=== PATIENT | female | born 1985 | race Caucasian/White ===

== ENCOUNTER 2020-12-24 12:05 | Emergency (ER) | payer BC, SELFPAY ==
[2020-12-24 12:11] VITALS: BP 116/87; PULSE 101; RESP 16; TEMP 36.6; O2SAT 98
--- NOTE | 2020-12-24 12:19 | ED.DENTAL ---
HPI - Dental/Oral General Chief complaint: Dental/Oral Stated complaint: tooth pain Time Seen by Provider: 12/24/20 12:15 Source: patient and RN notes reviewed Mode of arrival: ambulatory Limitations: no limitations History of Present Illness HPI Narrative: 35-year-old female presents to the [facility] stating that over the weekend she was eating and her left upper posterior molar fell out. Patient has poor dentition. Does not believe the tooth was infected, glucose or decayed. Call the dental provider this morning and has an appointment for December 31. Patient reports that she is currently on Augmentin for sinus infection, still has a week left Teeth map: 1. Tooth recently removed. Possible small amount of tooth left within the socket. 2. Tooth 14 and 15 both have decay. Related Data Home Medications Medication Instructions Recorded Confirmed estradiol 2 mg PO DAILY 10/17/19 12/24/20 insulin glulisine U-100 [Apidra 1 sliding scale dose SUBCUT 10/17/19 12/24/20 U-100 Insulin] USEASDIRECTD levothyroxine 125 mcg PO DAILY 10/17/19 12/24/20 amoxicillin-pot clavulanate 1 tablet PO BID 12/24/20 12/24/20 escitalopram oxalate 10 mg PO DAILY 12/24/20 12/24/20 insulin glargine [Lantus Solostar 15 unit SUBCUT QPM 12/24/20 12/24/20 U-100 Insulin] Allergies Allergy/AdvReac Type Severity Reaction Status Date / Time No Known Allergies Allergy Verified 12/24/20 12:14 Review of Systems Review of Systems: Narrative: CONSTITUTIONAL: Denies fever, chills, or sweats. EYES: Denies visual changes, redness, or discharge. ENT: Denies rhinorrhea, congestion, sore throat, or otalgia. Left upper dental pain CARDIOVASCULAR: Denies chest pain, palpitations, or edema. RESPIRATORY: Denies cough or dyspnea. GASTROINTESTINAL: Denies abdominal pain, nausea, vomiting, or diarrhea. MUSCULOSKELETAL: Denies back pain, joint pain, or myalgia. NEUROLOGIC: Denies headache, numbness, or weakness. PSYCHIATRIC: Denies anxiety or depression. All other systems reviewed are negative, except as documented in HPI. [facility] Past Medical History Medical History Diabetes Hypothyroidism Surgical History Surgical History H/O bilateral oophorectomy H/O: hysterectomy Previous section Social History Social History Tobacco type: e-cigarettes/vaping Comments At the time of my signature, I reviewed and agree with the nursing past medical, surgical, social, and family history. There is no relevant family history pertinent to the patient complaint. Exam Narrative: Exam Narrative: GENERAL: This is a well-nourished, well-developed patient, in no apparent distress. HEAD: normocephalic, atraumatic. EYES: PERRL. Sclera clear/white. Vision is grossly intact. EARS: External ears normal, auditory canals clear and without drainage, TMs normal without perforation. Hearing grossly intact. NOSE: External nose normal with no obvious nasal discharge, nares without redness, no rhinorrhea. THROAT: Mucous membranes moist, posterior pharynx clear. Dental decay noted in upper molars. Left upper molar no longer intact, patient reports it had fallen out over the weekend. No swelling to the gum. NECK: Neck supple, non-tender without lymphadenopathy, masses or thyromegaly. CARDIOVASCULAR: Regular rate and rhythm without murmurs, gallops, or rubs. RESPIRATORY: Clear to auscultation. Breath sounds equal bilaterally. No wheezes, rales, or rhonchi. GASTROINTESTINAL: Abdomen soft, non-tender. SKIN: warm, intact with no suspicious lesions or rash, good texture and turgor. NEURO: awake, alert, and oriented to person, place and time. There were no obvious focal neurologic abnormalities. EXTREMITIES: No joint tenderness. BACK: Nontender without deformity. Course Vital Signs Vital signs: Vital Signs Temperature 97.8 F 03
== END 2020-12-24 12:27 | disposition home or self-care (01) ==
PROVIDERS: Emergency Provider Nurse Practitioner
DX: K08.89 Other specified disorders of teeth and supporting structures (principal); F17.200 Nicotine dependence, unspecified, uncomplicated; E11.9 Type 2 diabetes mellitus without complications; E03.9 Hypothyroidism, unspecified
CPT/HCPCS: 99213; G0463

== ENCOUNTER 2025-06-11 19:29 | Emergency (ER) | payer SELFPAY ==
--- NOTE | ~2025-06-11 | XR_ITS ---
EXAMINATION: XR ankle LT min 3V DATE: 06/11/2025 20:04 INDICATION: Left ankle injury post fall TECHNIQUE: Anteroposterior, oblique and lateral views of the left ankle were obtained. COMPARISON: None. FINDINGS: There is an spiral fracture through the distal metaphyseal region of the left fibula which extends to the level of the tibiotalar joint line and with minimal posterior angulation. There is 6 mm distraction of a transverse fracture across the base of the medial malleolus. There is 3 mm posterior superior displacement and mild posterior angulation of a fracture extending across the posterior malleolus which involves a small portion of the posterior articular surface of the tibial plafond. No fracture of the talar dome. Couple millimeter lateral subluxation of the talar dome with respect to the tibial plafond and with slight widening of the anterior tibiotalar joint space. No fracture noted visualized left foot. 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 IMPRESSION: 1. Mild displacement of a trimalleolar fracture of the left ankle. Reviewed, dictated and finalized at location A.
[2025-06-11 19:31] VITALS: BP 141/87; PULSE 99; RESP 17; TEMP 36.4; O2SAT 100
--- OUTSIDE RECORDS SUMMARY | 2025-06-11 19:32 | XMS_ITS | Clinical Summary ---
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 No more refills. Needs to make a f/up appointment. Can be seen in [place] office 30 mL 9 Active atorvastatin 20 MG tablet Take 1 tablet by mouth. 7 Active Blood Glucose Monitoring Suppl (ONE TOUCH ULTRA 2) w/Device Kit 7 Active escitalopram 10 MG tablet Take 10 mg by mouth daily. 0 8 Active PREMARIN 1.25 MG tablet Take 1.25 mg by mouth daily. 6 9 Active fluconazole 150 MG tablet TK 1 T PO FOR 1 DOSE THEN REPEAT IN 3 DAYS 0 8 Active gabapentin 300 MG capsule TK 1 C PO QPM 2 9 Active Glucose Blood (ONE TOUCH ULTRA TEST STRIPS) test strip 5 (five) times daily. 7 Active ONETOUCH DELICA LANCETS FINE Misc by Other route 5 (five) times daily. 7 Active ESTARYLLA 0.25-35 MG-MCG tablet Take 1 tablet by mouth daily. 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 No more refills without an appointment. Last seen Jul 2017. 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 Gender Identity Not on file Sexual Orientation Not on file Last Filed Vital Signs Vital Sign Reading Time Taken Comments Blood Pressure 108/64 07/27/2017 12:00 PM CDT Pulse 75 07/27/2017 12:00 PM CDT Temperature - - Respiratory Rate - - Oxygen Saturation - - Inhaled Oxygen Concentration - - Weight 72.1 kg (159 lb) 07/27/2017 12:00 PM CDT Height 170.2 cm (5' 7) 07/27/2017 12:00 PM CDT Body Mass Index 24.9 07/27/2017 12:00 PM CDT Plan of Treatment Health Maintenance Due Date Last Done Comments Cervical Cancer Screening Pa p Smear (Age 30 to 64) Every 3 Years 1985 Annual Physical 1988 Hepatitis C 2003 DTaP, Tdap and Td Vaccines ( 1 - Tdap) 2004 Hepatitis B Vaccines (1 of 3 - 19+ 3-dose series) 2004 HPV Vaccines (1 - 3-dose SCD M series) 2012 Cervical Cancer Screening Pa p with HPV Testing (Age 30 to 64) Every 5 Years 2015 Cervical Cancer Screening with HPV 2015 COVID-19 Vaccine (2023-2 5 season) 2024 Mammogram Screening 2025 Meningococcal B Vaccine Aged Out No l onger eligible based on patient's age to complete this topic Meningococcal Vaccine Aged Out No robby mayuri eligible based on patient's age to complete this topic Pneumococcal Vaccine: Pediat rics (0 to 5 Years) and At-Risk Patients (6 to 49 Years) Aged Out No longer eligible b ased on patient's age to complete this topic RSV Immunizations Under 20 Months Aged Out No longer eligible based on patient's age to complete this topic
--- OUTSIDE RECORDS SUMMARY | 2025-06-11 19:32 | XMS_ITS | Clinical Summary ---
Author Organization [facility] Address [address] [place] [address] Phone Care Team Providers Care Bottle Cleaner Name Role Phone Claire Carrillo MD Unavailable [phone] Marcia Magana PAC Primary Care Pro vider Allergies Active Allergy Reactions Criticality Noted Date Comments Wound Dressing Adhesive Hives Medium 05/25/2024 Rash, blisters with wound glue Medications estradiol (ESTRACE) 2 MG Tablet TK 1 T PO D 06/20/2020 Active Insulin Pen Needle (Easy Touch Pen [place]averly) 32G X 5 MM Misc USE FOUR TIMES DAILY 400 Each 3 08/21/2022 Active Continuous Blood Gluc Soil Field Technician (Dexcom G7 Soil Field Technician) Device Check blood sugar before each meal and at bedtime 1 Each 01/28/2024 Active Insulin Pen Needle (BD Pen Needle Tiffany U/F) 32G X 4 MM Misc 1 Pen Needle by Does not apply route 4 times daily. Inject insulin 4x daily. 400 Pen Needle 3 01/28/2024 Active Continuous Glucose Sensor (Dexcom G7 Sensor) Misc CHANGE SENSOR EVERY 10 DAYS 9 Each 3 11/17/2024 Active levothyroxine (SYNTHROID) 112 MCG Tablet Take 1 Tablet by mouth daily. 90 Tablet 1 11/20/2024 Active atorvastatin (LIPITOR) 20 MG Tablet TAKE 1 TABLET BY MOUTH DAILY 90 Tablet 1 02/15/2025 Active insulin lispro (HumaLOG) 100 UNIT/ML Solution PER INSULIN PUMP SETTING, UP TO 70 UNITS UNDER THE SKIN DAILY 60 mL 1 03/27/2025 Active Glucose Blood (OneTouch Verio) StripIndications :Type 1 diabetes mellitus with retinopathy, macular edema presence unspecified, unspecified laterality, unspecified retinopathy severity (HCC) 4 times a day 400 Strip 3 04/11/2025 Active Blood Glucose Monitoring Suppl (OneTouch Verio) w/Device KitIndications:T ype 1 diabetes mellitus with retinopathy, macular edema presence unspecified, unspecified laterality, unspecified retinopathy severity (HCC) Check blood glucose before each meal and at bedtime 1 Kit 04/11/2025 Active OneTouch Delica Lancets 33G MiscIndications: Type 1 diabetes mellitus with retinopathy, macular edema presence unspecified, unspecified laterality, unspecified retinopathy severity (HCC) 4 times a day 400 Lancet . 3 04/11/2025 Active Active Problems Problem Noted Date Diagnosed Date Hypothyroidism 12/02/2022 Kidney disease 04/20/2020 Type 1 diabetes mellitus with other specified co mplication 04/20/2020 Generalized anxiety disorder 03/29/2020 Major depressive disorder, single episode, mild 03/29/2020 Posttraumatic stress disorder 03/29/2020 H/O abnormal Pap smear 02/13/2017 Overview (02/13/2017): 11-07-2016; LSIL H/O: hysterectomy 01/29/2017 Endometriosis 01/29/2017 Coccygodynia 02/20/2016 Sacroiliac dysfunction 02/20/2016 Type 1 diabetes mellitus with retinopathy 2015 Overview (04/20/2020): Followed by ENDO Insulin pump HA1C 8 (Oct 2016) Pt is seeing Dr Nunes Lumbar facet arthropathy, mild 12/21/2015 Tobacco dependence 12/21/2015 Encounters Date Type Department Care Team Description 04/11/2025 Refill [facility] - Endocrinology - [place] [address] [place] [address] Rigoberto Nunes MD Medication Refill 03/27/2025 Refill [facility] - Endocrinology - [place] [address] [place] [address] Rigoberto Nunes MD Medication Refill 03/23/2025 Results Follow-Up [facility] [address] [place] [phone] Rigoberto Nunes MD CMP (COMPREHENSIVE METABOLIC PANEL), THYROID STIMULATING HORMONE (TSH), THYROXINE (T4) FREE, Additional followed-up results: 2 03/22/2025 11:15 AM CDT Office Visit [facility] [address] [place] [phone] Rigoberto Nunes MD Type 1 diabetes mellitus with retinopathy, macular edema presence unspecified, unspecified laterality, unspecified retinopathy severity (HCC) (Primary Dx); Acquired hypothyroidism; Insulin dose changed (HCC); Hypoglycemia; Class 1 obesity due to excess calories with serious comorbidity and body mass index (BMI) of 31.0 to 31.9 in adult Discharge Disposition: Discharged to home or Selfcare 03/22/2025 Travel from Last 3 Months Immunizations Immunization Administration Dates Next Due Covid-19, Mrna, Lnp-s, Pf, 1 00 Mcg Or 50 Mcg Dose (MODERNA) 11/29/2020,10/25/2020 Influenza Vaccine 08/09/2018,07/04/2015 Influenza Vaccine greater than 3 yrs 07/04/2015 Influenza, Seasonal, Injectable, Undefined 07/04 Family History Medical History Relation Name Comments Alcohol Abuse Brother 1 George Diabetes Brother 1 George Asthma Brother 2 Sarbjit Cancer Father Jean Marie High Cholesterol Father Jean Marie Hypertension Father Jean Marie Lung Cancer Father Jean Marie Other-comment Father Jean Marie brain tumors High Cholesterol Mother Pat Hypertension Mother Pat Thyroid Disease Mother Pat No Known Problems Paternal Grandfather Hypertension Paternal Grandmother Relation Name Status Comments Brother 1 George Brother 2 Sarbjit Alive Father Jean Marie Maternal Grandfather Other Maternal Grandmother Other Mother Pat Alive Paternal Grandfather Paternal Grandmother Alive Social History Tobacco Use Types Packs/Day Years Used Date Smoking Tobacco: Former Cigarettes 0.5 12 0 01/11/2004 - 01/11/2016 Smokeless Tobacco: Never Tobacco Cessation:Counseling Given: No Alcohol Use Standard Drinks/Week Comments Not Currently 0 (1 standard drink = 0.6 oz pur e alcohol) social events/ gathering [facility] Utilities Answer Date Recorded In the past 12 months has th e electric, gas, oil, or water company threatened to shut off services in your home? No 05/23/2024 Social Connection and Isolation Panel Answer Date Recorded In a typical week, how many times do you talk on the phone with family, friends, or neighbors? More than three times a week 05/23/2024 How often do you get togethe r with friends or relatives? Twice a week 05/23/2024 How often do you attend chur or hindu services? Never 05/23/2024 Do you belong to any clubs o r organizations such as evangelical groups, unions, fraternal or athletic groups, or school groups? No 05/23/2024 How often do you attend meet ings of the clubs or organizations you belong to? Never 05/23/2024 Are you , , di vorced, , never , or living with a partner? 05/23/2024 AUDIT-C Answer Date Recorded Q1: How often do you have a drink containing alcohol? Never 05/23/2024 Q2: How many drinks containi ng alcohol do you have on a typical day when you are drinking? Patient does not drink Q3: How often do you have si x or more drinks on one occasion? Never 05/23/2024 Overall Financial Resource Strain (CARDIA) Answe r Date Recorded How hard is it for you to pa y for the very basics like food, housing, medical care, and heating? Not very hard 05/23/2024 PHQ-2 Answer Date Recorded Total Score - Questions 1-9 9 02/2022 [facility] - Occupational Stress Questionnaire Answer Date Recorded Do you feel stress - tense, restless, nervous, or anxious, or unable to sleep at night because your mind is troubled all the time - these days? To some extent 05/23/2024 Exercise Vital Sign Answer Date Recorde d On average, how many days pe r week do you engage in moderate to strenuous exercise (like a brisk walk)? 4 days 05/23/2024 On average, how many minutes do you engage in exercise at this level? 20 min 05/23/2024 Hunger Vital Sign Answer Date Recorded Within the past 12 months, y ou worried that your food would run out before you got the money to buy more. Never true 05/23/20 24 Within the past 12 months, t he food you bought just didn't last and you didn't have money to get more. Never true 05/23/2024 PRAPARE - Transportation Answer Date Re corded In the past 12 months, has l ack of transportation kept you from medical appointments or from getting medications? No 05/12 In the past 12 months, has l ack of transportation kept you from meetings, work, or from getting things needed for daily living? No 05/23/2024 Housing Stability Vital Sign Answer Lalo e Recorded In the last 12 months, was t here a time when you were not able to pay the mortgage or rent on time? No 05/23/2024 Number of Times Moved in the Last Year Not on fi le 05/23/2024 At any time in the past 12 m [facility], were you homeless or living in a nursing home (including now)? No 05/23/2024 Education Answer Date Recorded What is the highest level of school you have completed or the highest degree you have received? 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 Not on file Not on file Last Filed Vital Signs Vital Sign Reading Time Taken Comments Blood Pressure 114/66 03/22/2025 10:59 AM CDT Pulse 90 03/22/2025 10:59 AM CDT Temperature 36.2 C (97.1 F) 03/22/2025 10:59 AM CDT Respiratory Rate 22 03/22/2025 10:59 AM CDT Oxygen Saturation 96% 03/22/2025 10:59 AM CDT Inhaled Oxygen Concentration - - Weight 88.5 kg (195 lb) 03/22/2025 10:59 AM CDT Height 168.9 cm (5' 6.5) 03/22/2025 10:59 AM CD T Body Mass Index 31 03/22/2025 10:59 AM CDT Plan of Treatment Upcoming Encounters Date Type Department Care Team (Maureen castillo Contact Info) Description 06/22/2025 11:15 AM CDT Office Visit [facility] - [place] [address] [place] [address] Rigoberto Nunes MD [address] [address] Health Maintenance Due Date Last Done Comments Hepatitis C Virus (HCV) Screening 1985 Mammogram 1985 TdaP Immunization 1985 Hepatitis B Immunization (1 of 3 - 19+ 3-dose series) 2004 Pneumococcal Immunization Combined (1 of 2 - PCV) 2004 Human Papillomavirus (HPV) Immunization (1 - 3-dose SCDM series) 2012 SARS-COV-2 Immunization ( season) 2024 11/29/2020, 10/25/2020 Diabetes: Eye Exam 03/18/2025 03/18/2024, 0 02/19/2021, 02/18/2021, Additional history exists Discussion re Starting/Frequency of Mammograms 2025 Influenza Immunization (#1) 06/12/202507/13, 07/04/2015, 07/04/2015, Additional history exists Diabetes: Foot Exam 08/17/2025 08/17/2024 Diabetes: Hemoglobin A1c 09/21/2025 025, 11/17/2024, 08/17/2024, Additional history exists Diabetes: Nephropathy Screening 03/22/2026 03/22/2025, 03/22/2025, 05/20/2024, Additional history exists Respiratory Syncytial Virus (RSV) Immunization (Adult) (1 - 1-dose 75+ series) 2060 Meningococcal Immunization (ACWY) Aged Out No longer eligible based on patient's age to complete this topic Rotavirus Immunization Aged Out No lo nger eligible based on patient's age to complete this topic Goals Goal Patient Goal Type Associated Problems Recent Progress Patient-Stated? Author Behavioral Health Behavioral Health Improving( 11:25 AM MERCHANDISING INTERNSHIP) Yes Katherine Mathews LCPC Note: I would like to feel better about myself and have more confidence. Goal Reviewed with: patient Readiness to change: Thinking about making a change Department associated with goal: [facility] Steps to achieve goal: 1. Teresa will identify and process contributing factors/barriers to self- confidence. 2. Teresa will be able to identify, and report strong belief, in three or more personal strengths, qualities and/or abilities. 3. Teresa will identify at least two activities/skills to engage in for the purpose of strengthening self confidence. 4. Teresa will engage in at least one activity/skill to strengthen self- confidence. Behavioral Health Behavioral Health Improving( 11:25 AM MERCHANDISING INTERNSHIP) Katherine Barnes LCPC Note: Pt reported a desire to learn how to take care of myself as well as other people, to make her needs a priority but balanced with continuing to care for others in her roles as parent, spouse and employee. Goal Reviewed with: patient Readiness to change: Thinking about making a change Department associated with goal: [facility] Steps to achieve goal: 1. Teresa will identify at least two warning signs self care is being neglected. 2. Teresa will identify at least two boundaries that may help to improve opportunities for self-care. 3. Teresa will identify at least two ways/skills/habits of self-care believed to have a positive outcome on overall wellbeing. 4. Teresa will implement at least two changes (boundaries and/or skills/habits of self-care). Anxiety Behavioral Health Improving( 11:25 AM MERCHANDISING INTERNSHIP) Kirstin Najera LCSW Note: Goal/Objective: Improve coping with anxious thoughts. Anticipated Time Frame for Goal Completion: 6 months Goal Reviewed with: patient Readiness to change: Ready to change Department associated with goal: [facility] Steps to achieve goal: will attend counseling/psychotherapy sessions at least once monthly, at least 6 sessions, utilizing individual and/or group sessions to express thoughts and feelings. to identify, verbalize and process at least three contributing factors/triggers to anxiety to identify and verbalize at least three actions/skills to prevent and/or cope with anxiety to put into action, at least one time weekly, for one month, an action/skill to prevent and or cope with anxiety Procedures Procedure Name Priority Date/Time Associated Diagnosis Comments UR MICROALBUMIN/CREATIN INE RATIO RANDOM Routine 03/22/2025 11:46 AM CDT Type 1 diabetes mellitus with retinopathy, macular edema presence unspecified, unspecified laterality, unspecified retinopathy severity (HCC) Acquired hypothyroidism LOW DENSITY LIPID CHOLESTEROL MEASURED Routine 03/22/2025 11:46 AM CDT Type 1 diabetes mellitus with retinopathy, macular edema presence unspecified, unspecified laterality, unspecified retinopathy severity (HCC) Acquired hypothyroidism THYROXINE (T4) FREE Routine 03/22/2025 1 1:46 AM CDT Type 1 diabetes mellitus with retinopathy, macular edema presence unspecified, unspecified laterality, unspecified retinopathy severity (HCC) Acquired hypothyroidism THYROID STIMULATING HORMONE (TSH) Routine 03/22/2025 11:46 AM CDT Type 1 diabetes mellitus with retinopathy, macular edema presence unspecified, unspecified laterality, unspecified retinopathy severity (HCC) Acquired hypothyroidism CMP (COMPREHENSIVE METABOLIC PANEL) Routine 03/22/2025 11:46 AM CDT Type 1 diabetes mellitus with retinopathy, macular edema presence unspecified, unspecified laterality, unspecified retinopathy severity (HCC) Acquired hypothyroidism POCT GLYCOSYLATED HEMOGLOBIN Routine 03/22/2025 11:06 AM CDT Type 1 diabetes mellitus with retinopathy, macular edema presence unspecified, unspecified laterality, unspecified retinopathy severity (HCC) HM DILATED EYE EXAM 03/18/2024 1 2:00 AM CDT from Last 3 Months or Most Recently Relevant to Health Maintenance Results * UR MICROALBUMIN/CREATININE RATIO RANDOM (03/22/2025 11:46 AM CDT) RAN UR MICROALBUMIN <0.50 mg/dL 03/22/2025 1:16 PM CDT [facility] Comment:No reference range h as been established. Consider Clinical Correlation. CREATININE URINE 64.8 mg/dL 03/22/20 1:16 PM CDT [facility] Comment:No reference range h as been established. Consider Clinical Correlation. ALB/CREAT RATIO 1:16 PM CDT [facility] Comment:Unable to calculate due to urine microalbumin concentration less than 0.5 mg/dL Urine Non-Phlebotomy Collection / Unknown 03/22/2025 11:46 AM CDT 03/22/2025 12:43 PM CDT us Rigoberto Nunes MD URINE ORDERABLES Final Result Performing Organization Address City/[facility]/ZIP Co de Phone Number [facility] [address] [place] [address] * THYROXINE (T4) FREE (03/22/2025 11:46 AM CDT) T4 FREE 1.1 0.7 - 1.9 ng/dL 03/22/2025 1:29 PM CDT [facility] Blood Venipuncture / Unknown 03/22/2025 11:46 AM CDT 03/22/2025 12:44 PM CDT us Rigoberto Nunes MD CHEMISTRY ORDERABLES Final Resul t Performing Organization Address City/[facility]/ZIP Co de Phone Number [facility] [address] [place] [address] * THYROID STIMULATING HORMONE (TSH) (03/22/2025 11:46 AM CDT) TSH 1.411 0.300 - 5.000 mIU/L 03/22/2025 1:29 PM CDT [facility] Blood Venipuncture / Unknown 03/22/2025 11:46 AM CDT 03/22/2025 12:44 PM CDT us Rigoberto Nunes MD CHEMISTRY ORDERABLES Final Resul t [facility] [address] [place] [address] * LOW DENSITY LIPID CHOLESTEROL MEASURED (03/22/2025 11:46 AM CDT) LDL, MEASURED 78 <130 mg/dL 03/22/2025 9:28 PM CDT [facility] Blood Venipuncture / Unknown 03/22/2025 11:46 AM CDT 03/22/2025 12:44 PM CDT us Rigoberto Nunes MD CHEMISTRY ORDERABLES Final Resul t [facility] [address] [place] [address], * (ABNORMAL) CMP (COMPREHENSIVE METABOLIC PANEL) (03/22/2025 11:46 AM CDT) Pathologist [facility] SODIUM 142 136 - 145 mmol/L 03/22/2025 1:15 PM CDT [facility] POTASSIUM 4.4 3.5 - 5.1 mmol/L 03/22/2025 1:15 PM CDT [facility] CHLORIDE 108(H) 98 - 107 mmol/L 03/22/2025 1:15 PM CDT [facility] CO2, VENOUS 26 22 - 30 mmol/L 03/22/2025 1:15 PM CDT [facility] ANION GAP 12.4 <18.0 mmol/L 03/22/2025 1:15 PM CDT [facility] GLUCOSE 128(H) 70 - 99 mg/dL 03/22/2025 1:15 PM CDT [facility] BUN 6 5 - 18 mg/dL 03/22/2025 1:15 PM CDT [facility] CREATININE, BLOOD 0.73 0.60 - 1.00 mg/dL 03/22/2025 1:15 PM CDT [facility] BUN/CREATININE RATIO 8(L) 12 - 20 ratio 03/22/2025 1:15 PM CDT [facility] TOTAL PROTEIN 7.2 6.0 - 8.0 g/dL 03/22/2025 1:15 PM CDT [facility] ALBUMIN 4.2 3.5 - 5.0 g/dL 03/22/2025 1:15 PM [facility] A/G RATIO 1.4 1.0 - 2.2 03/22/2025 1:15 PM CDT [facility] CALCIUM 8.8 8.7 - 10.5 mg/dL 03/22/2025 1:15 PM T [facility] T BILI 0.3 0.2 - 1.2 mg/dL 03/22/2025 1:15 PM [facility] SGOT (AST) 26 <43 U/L 03/22/2025 1:15 PM T [facility] SGPT (ALT) 25 <56 U/L 03/22/2025 1:15 PM [facility] ALKALINE PHOSPHATASE 81 40 - 150 U/L 03/22/2025 1:15 PM [facility] IS THE PATIENT REQUIRED TO BE FASTING? No 03/22/2025 1:15 PM [facility] GFR, ESTIMATED >60 >=60 03/22/2025 1:15 PM T [facility] Comment: Creatinine Clearance is the preferred criteria for selecting drug dose adjustments in renally impaired patients. The GFR is provided as additional pertinent clinical information. GFR is reported in mL/min/1.73 sq m. Calculation based on the Chronic Kidney Disease Epidemiology Collaboration (CKD- EPI) equation refit without adjustment for race. GFR, EST. >60 >=60 025 1:15 PM T [facility] GFR, EST. NONAFRICAN >60 >=60 03/22/2025 1:15 PM [facility] Blood Venipuncture / Unknown 03/22/2025 11:46 AM CDT 03/22/2025 12:44 PM CDT us Rigoberto Nunes MD CHEMISTRY ORDERABLES Final Resul t [facility] [address] [place] [address] * (ABNORMAL) POCT GLYCOSYLATED HEMOGLOBIN (03/22/2025 11:06 AM CDT) HGB-A1C 6.3(A) 4 - 6 % Blood 03/22/2025 11:0 6 AM CDT us Rigboerto Nunes MD POINT OF CARE TESTING (MANUAL) F inal Result * HM DILATED EYE EXAM (03/18/2024 12:00 AM CDT) 03/18/2024 us Provider Scan PROCEDURE/MINOR SURGICAL ORDERAB LES Final Result SCAN from Last 3 Months or Most Recently Relevant to Health [place] [address] [place] [place] [address] [address] [place] [address] Care Teams Bottle Cleaner Relationship Specialty Start Date End Date Marcia Magana, CIERRA PCP - General Physician Golf Ball Trimmer 11/17/22 Claire Carrillo MD Consulting Physician Obstetrics & Gynecology 09/21/17
--- OUTSIDE RECORDS SUMMARY | 2025-06-11 19:32 | XMS_ITS | Encounter Summary ---
Author Organization [facility] Address [address] [facility] [place] [address] Phone Care Team Providers Care Structural Steel Engineer Name Role Phone Claire Carrillo MD Unavailable [phone] MD Primary Care Provider Marcia Magana PAC Primary Care Pro vider Reason for Visit * Reason Comments Medication Refill Encounter Details Date Type Department Care Team (Late st Contact Info) Description 01/05/2022 [facility]ill [facility] - [place] [address] [place] [address] Rigoberto Nunes MD [address] [address] Medication Refill Social History Tobacco Use Types Packs/Day Years Used Date Smoking Tobacco: Former Cigarettes 0.5 12 0 01/11/2004 - 01/11/2016 Smokeless Tobacco: Never Alcohol Use Standard Drinks/Week Comments Not Currently 0 (1 standard drink = 0.6 oz pur e alcohol) social events/ gathering PHQ-2 Answer Date Recorded Total Score - Questions 1-9 0 07/12 Education Answer Date Recorded What is the highest level of school you have completed or the highest degree you have received? 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 Insulin Pen Needle (Easy Touch Pen [place]) 32G X 5 MM Misc [Pharmacy Med Name: EASY TOUCH PEN NEEDLES [id number]] 400 Each 3 Sig: USE FOUR TIMES DAILY Next appt: Message sent to schedule follow up. documented in this encounter Plan of Treatment Upcoming Encounters Date Type Department Care Team (Late st Contact Info) Description 06/22/2025 11:15 AM CDT Office Visit [facility] - [place] [address] [place] [address] Rigoberto Nunes MD [address] [address] documented as of this encounter Goals Goal Patient Goal Type Associated Problems Recent Progress Patient-Stated? Author Behavioral Health Behavioral Health Improving( 11:25 AM GOPHERMAN) Yes Katherine Mathews LAND EXAMINER Note: I would like to feel better about myself and have more confidence. Goal Reviewed with: patient Readiness to change: Thinking about making a change Department associated with goal: [facility] Steps to [...] Behavioral Health Behavioral Health Improving( 11:25 AM GOPHERMAN) Yes Katherine Mathews, [facility] Note: Pt reported a desire to learn how to take care of myself as well as other people, to make her needs a priority but balanced with continuing to care for others in her roles as parent, spouse and employee. Goal Reviewed with: patient Readiness to change: Thinking about making a change Department associated with goal: [facility] Steps to [...] two changes (boundaries and/or skills/habits of self-care). documented as of this encounter Visit Diagnoses Not on filedocumented in this encounter Additional Health Concerns Assessment Noted Time PHQ-9 Depression Total Score: 0 07/30/20 20 8:16 AM CDT documented as of this encounter Care Teams Structural Steel Engineer Relationship Specialty Start Date End Date Susie Way MD PCP - General Family Medicine 06/12/22 11/16/22 Marcia Magana PAC PCP - General Physician Seasoner 11/17/22 Claire Carrillo MD Consulting Physician Obstetrics & Gynecology 09/21/17 documented as of this encounter
--- OUTSIDE RECORDS SUMMARY | 2025-06-11 19:32 | XMS_ITS | Encounter Summary ---
Author Organization [facility] Address [address] [place] [address] Phone Care Team Providers Care Cook Box Filler Name Role Phone Claire Carrillo MD Unavailable [phone] Marcia Magana PAC Primary Care Pro vider Reason for Visit * Reason Comments Medication Refill Encounter Details Date Type Department Care Team (Late st Contact Info) Description 01/22/2024 [facility]ill [facility] - [facility]ology - [place] [address] [place] [address] Rigoberto Nunes MD [address] [phone] Medication Refill Social History Tobacco Use Types Packs/Day Years Used Date Smoking Tobacco: Former Cigarettes 0.5 12 0 01/11/2004 - 01/11/2016 Smokeless Tobacco: Never Alcohol Use Standard Drinks/Week Comments Not Currently 0 (1 standard drink = 0.6 oz pur e alcohol) social events/ gathering PHQ-2 Answer Date Recorded Total Score - Questions 1-9 9 02/2022 Education Answer Date Recorded What is the [...] 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 Chart reviewed to insure medication was already refilled at pharmacy that is currently requesting refill. documented in this encounter Plan of Treatment Upcoming Encounters Date Type Department Care Team (Late st Contact Info) Description 06/22/2025 11:15 AM CDT Office Visit [facility] - Endocrinology - [place] [address] [place] [address] Rigoberto Nunes MD [address] [phone] documented as of this encounter Goals Goal Patient Goal Type Associated Problems Recent Progress Patient-Stated? Author Behavioral Health Behavioral Health Improving( 11:25 AM BOTTLED BEVERAGE INSPECTOR) Yes Katherine Mathews LCPC Note: I would like to feel better about myself and have more confidence. Goal Reviewed with: patient Readiness to change: Thinking about making a change Department associated with goal: [facility] Steps to achieve goal: 1. Teresa will identify and process contributing factors/barriers to self- confidence. 2. Teresa will be able to identify, and report strong belief, in three or more personal strengths, qualities and/or abilities. 3. Teresa will identify at least two activities/skills to engage in for the purpose of strengthening self confidence. 4. Tersea will engage in at least one activity/skill to strengthen self- confidence. Behavioral Health Behavioral Health Improving( 11:25 AM BOTTLED BEVERAGE INSPECTOR) Yes Katherine Mathews LCPC Note: Pt reported a desire to learn how to take care of myself as well as other people, to make her needs a priority but balanced with continuing to care for others in her roles as parent, spouse and employee. Goal Reviewed with: patient Readiness to change: Thinking about making a change Department associated with goal: [facility] Steps to [...] self-care). Anxiety Behavioral Health Improving( 11:25 AM BOTTLED BEVERAGE INSPECTOR) Kirstin Najera LCSW Note: Goal/Objective: Improve coping with anxious thoughts. Anticipated Time Frame for Goal Completion: 6 months Goal Reviewed with: patient Readiness to change: Ready to change Department associated with goal: [facility] Steps to [...] to prevent and or cope with anxiety documented as of this encounter Visit Diagnoses Not on filedocumented in this encounter Additional Health Concerns Assessment Noted Time PHQ-9 Depression Total Score: 9 09/15/20 22 9:00 AM BOTTLED BEVERAGE INSPECTOR documented as of this encounter Care Teams Cook Box Filler Relationship Specialty Start Date End Date Marcia Magana PAC PCP - General Physician Order Booker 11/17/22 Claire Carrillo MD Consulting Physician Obstetrics & Gynecology 09/21/17 documented as of this encounter
--- OUTSIDE RECORDS SUMMARY | 2025-06-11 19:32 | XMS_ITS | Encounter Summary ---
Author Organization [facility] Address [address] [place] [address] Phone Care Team Providers Care Sheeter Waxer Operator Name Role Phone Marcia Magana PAC Primary Care Pro vider Claire Carrillo MD Unavailable [phone] MD Primary Care Provider Marcia Magana PAC Primary Care Pro vider Reason for Visit * Reason Comments Medication Refill Encounter Details Date Type Department Care Team (Late st Contact Info) Description 07/16/2020 Refill [facility] - [facility] [place], [place] [address] [place] [address] Marcia Magana, PAC [address] [place] [address] Medication Refill Social History Tobacco Use Types Packs/Day Years Used Date Smoking Tobacco: Former Cigarettes 0.5 12 0 01/11/2004 - 01/11/2016 Smokeless Tobacco: Never Alcohol Use Standard Drinks/Week Comments Not Currently 0 (1 standard drink = 0.6 oz pur e alcohol) social events/ gathering PHQ-2 Answer Date Recorded PHQ-2 Score 13 03/28/2020 Education Answer Date Recorded What is the [...] 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 No / Unsure 06/21/2020 3:58 PM CDT documented as of this encounter Miscellaneous Notes * Telephone Encounter - Milagros Bartlett RN - 07/17/2020 3:39 PM CDT Medication failed the protocol, routing to provider to review and approve the medication order. Requested Prescriptions Pending Prescriptions Disp Refills escitalopram (LEXAPRO) 10 MG Tablet [Pharmacy Med Name: ESCITALOPRAM 10MG TABLETS] 90 Tab 0 Sig: Take 1 Tab by mouth daily. Not Delegated - Psychiatry: Antidepressants Failed - 07/16/2020 12:54 PM Failed - This refill cannot be delegated Passed - Valid encounter within last 12 months Past Office Visits Recent Outpatient Visits 2 months ago Generalized anxiety disorder [facility] - Family Medicine - Marcia Montoya PAC 3 months ago Anxiety [facility] - Marcia Montoya PAC 6 months ago Cough [facility] - RobbieJayleen Lugo PAC 7 months ago Cough [facility] [place] APN, DONOR TECHNICIAN 11 months ago Upper respiratory tract infection, unspecified type [facility] - Marcia Montoya PAC Upcoming Appointments Future Appointments In 1 week Marcia Magana PAC [facility] Medical [facility] - Family Medicine - [place] In 1 week Rigoberto Nunes MD [facility] Group - Endocrinology - [place] WINDOW SASH INSTALLER - Recent and Past Visits Recent Visits Date Type Provider Dept 04/20/20 Office Visit Marcia Magana PAC [facility] [place] 03/21/20 Office Visit Marcia Magana, PAC [facility] [place] 01/03/20 Office Visit Jayleen Bruno, PAC [facility] [place] 11/28/19 Office Visit Carie Rivers APN, DONOR TECHNICIAN [facility] [place] 07/27/19 Office Visit Marcia Magana, PAC [facility] [place] Showing recent visits within past 460 days with a meds authorizing provider and meeting all other requirements Future Appointments Date Type Provider Dept 07/30/20 Appointment Marcia Magana, PAC [facility] [place] Showing future appointments within next 90 days with a meds authorizing provider and meeting all other requirements documented in this encounter Plan of Treatment Upcoming Encounters Date Type Department Care Team (Late st Contact Info) Description 06/22/2025 11:15 AM CDT Office Visit [facility] - Endocrinology - [place] [address] [place] [address] Rigoberto Nunes MD [address] [phone] documented as of this encounter Goals Goal Patient Goal Type Associated Problems Recent Progress Patient-Stated? Author Behavioral Health Behavioral Health Improving( 11:25 AM TEST PULLER) Yes Katherine Mathews, [facility] Note: I would like to feel better about myself and have more confidence. Goal Reviewed with: patient Readiness to change: Thinking about making a change Department associated with goal: [facility] Steps to achieve goal: [...] Behavioral Health Behavioral Health Improving( 11:25 AM TEST PULLER) Yes Katherine Mathews, [facility] Note: Pt reported a desire to learn how to take care of myself as well as other people, to make her needs a priority but balanced with continuing to care for others in her roles as parent, spouse and employee. Goal Reviewed with: patient Readiness to change: Thinking about making a change Department associated with goal: [facility] Steps to achieve goal: [...] filedocumented in this encounter Additional Health Concerns Infection Onset Date Last Indicated Resolved Time COVID - 19 12/21/2020 12/21/2020 12/23/2020 8:42 AM CDT Assessment Noted Time PHQ-9 Depression Total Score: 13 03/28/ 020 9:00 AM CDT documented as of this encounter Care Teams Sheeter Waxer Operator Relationship Specialty Start Date End Date Marcia Magana PAC PCP - General Physician Bitumastic Applier 01/30/17 12/01/[address] MD PCP - General Family Medicine 06/12/22 11/16/22 Marcia Magana PAC PCP - General Physician Bitumastic Applier 11/17/22 Claire Carrillo MD Consulting Physician Obstetrics & Gynecology 09/21/17 documented as of this encounter
--- OUTSIDE RECORDS SUMMARY | 2025-06-11 19:32 | XMS_ITS | Encounter Summary ---
Author Organization [facility] Address [address] [place] [address] Phone Care Team Providers Care Humanities Teacher Name Role Phone Marcia Magana PAC Primary Care Pro vider Claire Carrillo MD Unavailable [phone] MD Primary Care Provider Marcia Magana PAC Primary Care Pro vider Reason for Visit * Reason Comments Medication Refill Encounter Details Date Type Department Care Team (Late st Contact Info) Description 12/19/2020 Refill [facility] [place] [facility] [place] [address] [place] [address] Marcia Magana, PAC [address] [place] [address] Medication Refill Social History Tobacco Use Types [...] 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 HEN FOOD SERVER documented in this encounter Plan of Treatment Upcoming Encounters Date Type Department Care Team (Late st Contact Info) Description 06/22/2025 11:15 AM CDT Office Visit [facility] - Endocrinology - [place] [address] [place] [address] Rigoberto Nunes MD [address] [phone] documented as of this encounter Goals Goal Patient Goal Type Associated Problems Recent Progress Patient-Stated? Author Behavioral Health Behavioral Health Improving( 11:25 AM KITCHEN FOOD SERVER) Yes Katherine Mathews LCPC Note: I would like to feel better about myself and have more confidence. Goal Reviewed with: patient Readiness to change: Thinking about making a change Department associated with goal: [facility] Steps to achieve [...] Behavioral Health Behavioral Health Improving( 11:25 AM KITCHEN FOOD SERVER) Yes Katherine Mahtews LCPC Note: Pt reported a desire to learn how to take care of myself as well as other people, to make her needs a priority but balanced with continuing to care for others in her roles as parent, spouse and employee. Goal Reviewed with: patient Readiness to change: Thinking about making a change Department associated with goal: [facility] Steps to achieve [...] Time PHQ-9 Depression Total Score: 0 07/30/20 8:16 AM CDT documented as of this encounter Care Teams Humanities Teacher Relationship Specialty Start Date End Date Marcia Magana PAC PCP - General Physician Division Controller 01/30/17 12/01/[address] MD PCP - General Family Medicine 06/12/22 11/16/22 Marcia Magana PAC PCP - General Physician Division Controller 11/17/22 Claire Carrillo MD Consulting Physician Obstetrics & Gynecology 09/21/17 documented as of this encounter
--- OUTSIDE RECORDS SUMMARY | 2025-06-11 19:32 | XMS_ITS | Encounter Summary ---
Author Organization [facility] Address [address] [place] [address] Phone Care Team Providers Care Operations Chief Name Role Phone Claire Carrillo MD Unavailable [phone] Marcia Magana Primary Care Pro vider Reason for Visit * Reason Comments Medication Refill Encounter Details Date Type Department Care Team (Late st Contact Info) Description 04/12/2024 Refill [facility] [place] [address] [place] [address] Marcia Magana PAC [address] [place] [address] Medication Refill Social History Tobacco Use Types Packs/Day Years Used Date Smoking Tobacco: Former Cigarettes 0.5 12 0 01/11/2004 - 01/11/2016 Smokeless Tobacco: Never Alcohol Use Standard Drinks/Week Comments Not Currently 0 (1 standard drink = 0.6 oz pur e alcohol) social events/ gathering PHQ-2 Answer Date Recorded Total Score - Questions 1-9 9 12/02/2022 Education Answer Date Recorded What is the [...] 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 Author Behavioral [facility] Health Improving( 11:25 AM PAVING INSPECTOR) Yes Katherine Mathews LCPC Note: I would like to feel better about myself and have more confidence. Goal Reviewed with: patient Readiness to change: Thinking about making a change Department associated with goal: [facility] Steps to achieve goal: [...] Behavioral Health Behavioral Health Improving( 11:25 AM PAVING INSPECTOR) Yes Katherine Mathews LCPC Note: Pt reported a desire to learn how to take care of myself as well as other people, to make her needs a priority but balanced with continuing to care for others in her roles as parent, spouse and employee. Goal Reviewed with: patient Readiness to change: Thinking about making a change Department associated with goal: [facility] Steps to achieve goal: [...] self-care). Anxiety Behavioral Health Improving( 11:25 AM PAVING INSPECTOR) Kirstin Najera LCSW Note: Goal/Objective: Improve coping with anxious thoughts. Anticipated Time Frame for Goal Completion: 6 months Goal Reviewed with: patient Readiness to change: Ready to change Department associated with goal: [facility] Steps to achieve goal: [...] Total Score: 9 09/15/20 22 9:00 AM PAVING INSPECTOR documented as of this encounter Care Teams Operations Chief Relationship Specialty Start Date End Date Marcia Magana PAC PCP - General Physician Crane Ladle Person 11/17/22 Claire Carrillo MD Consulting Physician Obstetrics & Gynecology 09/21/17 documented as of this encounter
--- OUTSIDE RECORDS SUMMARY | 2025-06-11 19:32 | XMS_ITS | Clinical Summary ---
Author Organization CC [facility] [address] Address [address] [place] [address] Phone Care Team Providers Care Taper Machine Name Role Phone Marcia Magana Primary Care Prov ider Juarez Garcia PT Unavailable Unavailable Emily Parr Unavailable [phone] Allergies Active Allergy Reactions Criticality Noted Date Comments Adhesive Blisters High 06/15/2024 Medipore surgical tape, Dermabond Tissue Adhesive Hives Medium 05/25/2024 Rash, blisters with wound glue Medications blood glucose diagnostic (ONETOUCH ULTRA TEST) strip use to check glucose 4/day 120 each 6 4 Active Dexcom G7 Sensor device CHANGE SENSOR EVERY 10 DAYS 4 Active Dexcom G7 Solder Making Supervisor misc CHECK BLOOD SUGAR BEFORE EACH MEAL AND AT BEDTIME 4 Active insulin lispro (HumaLOG) 100 unit/mL cartridge Inject under the skin Active atorvastatin (LIPITOR) 20 mg tablet Take 1 tablet (20 mg total) by mouth daily 5 Active levothyroxine (SYNTHROID) 112 mcg tablet Take 1 tablet (112 mcg total) by mouth daily 5 Active estradioL (ESTRACE) 2 mg tabletIndicatio ns: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 Take 1 tablet (2 mg total) by mouth daily 90 tablet 3 5 12/22/19 26 Active acetaminophen-c odeine (TYLENOL with CODEINE #3) 300-30 mg per tabletIndicatio ns:Pain Take 1 tablet by mouth every 6 (six) hours as needed for pain 20 tablet 5 Active acetaminophen-c odeine (TYLENOL with CODEINE #3) 300-30 mg per tabletIndicatio ns:Pain Take 1 tablet by mouth every 6 (six) hours as needed for pain 20 tablet 5 06/01/20 25 Discontinu ed(Reorder ) Active Problems Problem Noted Date Diagnosed Date Adhesive capsulitis of right shoulder 05/23/2024 Biceps tendinitis on right 05/23/2024 Radial tunnel syndrome of right upper extremity 03/08/2021 Kidney disease 04/20/2020 Generalized anxiety disorder 03/29/2020 Posttraumatic stress disorder 03/29/2020 Major depressive disorder, single episode, mild 03/29/2020 FCR (flexor carpi radialis) tenosynovitis 2018 De Quervain's disease (radial styloid tenosynovi tis) 04/27/2018 Carpal tunnel syndrome of right wrist 11/16/2017 Tightness of tendon 04/20/2017 Right carpal tunnel syndrome 03/30/2017 Personal history of other specified conditions ( CODE) 02/13/2017 Overview (11/16/2017): Overview: 11-07-2016; LSIL Endometriosis 01/29/2017 H/O: hysterectomy 01/29/2017 Sacroiliac dysfunction 02/20/2016 Lumbar facet arthropathy 12/21/2015 Tobacco dependence 12/21/2015 Type 1 diabetes mellitus with retinopathy 2015 Overview (12/21/2024): Followed by ENDO Insulin pump HA1C 8 (Oct 2016) Pt is seeing Dr Nunes Coccygodynia 11/16/2015 Overview (11/16/2017): Leg pain Arthralgia of hip 11/12/2015 Overview (01/16/2017): Hip pain Inguinal pain 11/12/2015 Overview (01/16/2017): Groin pain Low back pain 11/12/2015 Overview (01/16/2017): Low back pain Former smoker 11/12/2015 Overview (01/16/2017): Ex smoker Type 1 diabetes mellitus 02/25/2014 Overview (01/15/2017): Diabetes mellitus type 1 Diabetes mellitus 02/25/2014 Overview (01/16/2017): Background diabetic retinopathy Hypothyroidism 02/25/2014 Overview (01/16/2017): Hypothyroidism Postoperative hypothyroidism 07/12/2009 Resolved Problems Problem Noted Date Diagnosed Date Resolved Date Type 1 diabetes mellitus without complication 02/02/20 12 11/16/2017 Overview (11/16/2017): DMI WO CMP NT ST UNCNTRL Overview: Followed by ENDO Insulin pump HA1C 8 (Oct 2016) Encounters Date Type Department Care Team Description 05/11/2025 7:30 AM CDT Therapy [address] [place] [address] Juarez Garcia PT Adhesive capsulitis of left shoulder (Primary Dx) 05/11/2025 Plan of Care Documentation [address] [address] 04/17/2025 9:00 AM CDT Office Visit [facility] [address] [place] [phone] Emily Parr PA Adhesive capsulitis of left shoulder (Primary Dx); Acute pain of left shoulder 04/17/2025 7:44 AM CDT - 04/17/2025 11:59 PM CDT Hospital Encounter [facility] [address] [place] [address] [address] [address] Discharge Disposition: Discharge to home or self care 04/05/2025 Telephone [facility] [address] [place] [address] [address] [address] Emily Parr PA from Last 3 Months Immunizations Immunization Administration Dates Next Due Influenza, Trivalent, IM (MDV) 07/04/2015 Influenza, Trivalent, Preservative Free, Intramu scular 08/09/2018 Surgical History Surgery Date Site/Laterality Comments SECTION 10/12/2007 - 10/11/2008 CERVICAL BIOPSY W/ LOOP ELECTRODE EXCISION 10/12/2011 - 10/11/2012 BRYAN II LAPAROSCOPIC TOTAL HYSTERECTOMY 10/12/2014 - 10/11/2015 persistently abnormal paps, irregular bleeding: TLH with BS, 2 returns to OR for bleeding, left oophorectomy LAPAROSCOPIC OOPHORECTOMY 10/12/2014 - 10/11/2015 Right pelvic pain, ovarian cysts DIAGNOSTIC LAPAROSCOPY 10/12/2014 - 10/11/2015 dyspareunia and pelvic adhesions: laparoscopic CHANTELLE and peritoneal biopsies CARPAL TUNNEL RELEASE 10/12/2016 - 10/11/2017 WRIST SURGERY 10/12/2018 - 10/11/2019 Right HYSTERECTOMY 11/2014 SECTION 03/09/2008 SHOULDER ARTHROSCOPY 10/12/2023 - 10/11/2024 Medical History Medical History Date Comments Hx of diabetic retinopathy 1996 Hypothyroidism 2006 Abnormal Pap smear of cervix 2011 [place]; BRYAN II on LEEP Abnormal Pap smear of cervix 2014 Anxiety and depression IDDM (insulin dependent diabetes mellitus) 2012 Diabetes mellitus type I (HCC) Family History Medical History Relation Name Comments Alcohol abuse Brother Jean Marie Martinez Diabetes Brother Jean Marie Martinez Cancer Father Maria Isabel Martinez Hypertension Father Maria Isabel Martinez Lung cancer Father Maria Isabel Martinez COD Diabetes type II Mother Nancy Martinez Hypertension Mother Nancy Martinez Diabetes Paternal Grandfather Jean Marie Martinez Diabetes type II Sister Relation Name Status Comments Brother Jean Marie Certified Low Vision Therapist Father Maria Isabel Certified Low Vision Therapist Mother Nancy Certified Low Vision Therapist Paternal Grandfather Jean Marie Martinez Sister Social History Tobacco Use Types Packs/Day Years Used Date Smoking Tobacco: Former Cigarettes 0.5 8 Smokeless Tobacco: Never Tobacco Cessation:Counseling Given: Not Answered Comments:Smoking History Packs/day: 0.5 Packs Alcohol Use Standard Drinks/Week Comments Yes 0 (1 standard drink = 0.6 oz pur e alcohol) AUDIT-C Answer Date Recorded Q1: How often do you have a drink containing alcohol? Never 11/02/2024 Q2: How many drinks containi ng alcohol do you have on a typical day when you are drinking? Patient does not drink Q3: How often do you have si x or more drinks on one occasion? Never 11/02/2024 Personal Safety Answer Date Recorded Have you ever been in or are you currently in a harmful physical or emotional relationship or is someone making you feel afraid or unsafe? Denies 06/02/2024 Comments No Sex and Gender Information Value Date Recorded Sex Assigned at Not on file Legal Sex Female 2:20 PM ENTRY LEVEL ACCOUNTANT Gender Identity Not on file Sexual Orientation Not on file Obstetrics History Para Term AB IAB SAB Ectopic Multiple Livin g Live Births 3 2 0 2 1 0 1 0 0 0 0 Date Outcome GA Total Labor Labor/2nd/3rd Weight Sex Type Anes PTL Marcela A1 A5 Name Clin SAB Last Filed Vital Signs Vital Sign Reading Time Taken Comments Blood Pressure 122/85 04/17/2025 9:07 AM CDT Pulse 96 04/17/2025 9:07 AM CDT Temperature 36.2 C (97.1 F) 06/02/2024 11:50 PM CDT Respiratory Rate 18 11/07/2024 11:35 AM ENTRY LEVEL ACCOUNTANT Oxygen Saturation 98% 06/03/2024 12:00 AM CDT Inhaled Oxygen Concentration - - Weight 88 kg (194 lb) 04/17/2025 9:07 AM CDT Height 170.2 cm (5' 7) 04/17/2025 9:07 AM CDT Body Mass Index 30.38 04/17/2025 9:07 AM CDT Plan of Treatment Health Maintenance Due Date Last Done Comments Albumin Creatinine Ratio, Urine 1985 Breast Cancer Screening-Mammogram 1985 Depression Screening 1985 Foot Exam 1985 Hemoglobin A1C 1985 Hepatitis C Screening 1985 eGFR 1985 Dilated Eye Exam 1995 Lipid Panel 1995 DTaP/Tdap/Td Vaccine (1 - Tdap) 1996 Varicella Vaccines (1 of 2 - 13+ 2-dose series) 1998 Hepatitis B Screening 2003 Pneumococcal vaccine <65 (1 of 2 - PCV) 2004 HPV Vaccines (1 - 3-dose SCD M series) 2012 Covid-19 Vaccine (3 - 2023-2 5 season) 2024 11/29/2020, 10/25/2020 Influenza Vaccine (#1) 2025 08/09/2018, 2014 Regular Well Visit/Exam 18-64 12/21/2025, 12/09/2023, 07/28/2022, Additional history exists TSH Level 03/22/2026 03/22/2025, 02/0 03/2025, 08/17/2024, Additional history exists Cervical Cancer Screening Discontinued 2023, 12/09/2023, 02/04/2021, Additional history exists Procedures Procedure Name Priority Date/Time Associated Diagnosis Comments XR SHOULDER LEFT 2 OR MORE VIEWS Routine 04/17/2025 9:21 AM CDT Acute pain of left shoulder SD ARTHROCENTESIS ASPIR&/INJ MAJOR JT/BURSA W/O US Routine 04/17/2025 9:00 AM CDT Acute pain of left shoulder Adhesive capsulitis of left shoulder HIGH RISK HPV DNA DETECTION WITH GENOTYPING Routine 12/09/2023 1:48 PM ENTRY LEVEL ACCOUNTANT Screening for malignant neoplasm of the cervix from Last 3 Months or Most Recently Relevant to Health Maintenance Results * XR Shoulder Left 2 or More Views (04/17/2025 9:21 AM CDT) Anatomical Region Laterality Modality Upper Extremities, Shoulder Left Digi kasey Radiography Narrative 04/22/2025 3:08 PM CDT Radiographs of the left shoulder reviewed and interpreted. No acute fractures, subluxation/dislocation, or destructive osseous lesions. Joint space is maintained. Emily DUMONT IMJeremie XR PROCEDURES Final Result * High Risk HPV DNA Detection with Genotyping (Molecular component) (12/09/2023 1:48 PM ENTRY LEVEL ACCOUNTANT) HPV HR 16 Not Detected Not Detected AIMEE CASTELLANO Comment:Testing performed by : [facility], [address] [place]., [address] HPV HR 18 Not Detected Not Detected AIMEE CASTELLANO Comment:Testing performed by : [facility], [address] [place]., [address] HPV HR Non 16/18 Not Detected Not Detected AIMEE CASTELLANO Comment: Interpretive Data Nucleic acid amplification for detection of high-risk Human Papilloma virus (HPV) is performed by the Yaw Sheryl 6800 HPV test. This assay specifically detects HPV-16 and HPV-18 genotypes. The following HPV genotypes are detected as high-risk HPV: HPV-31, 33, 35, ,39, 45, 51, 52, 56, 58, 59, 66, and 68. This assay has been approved by the [place] Food and Drug Administration for detection of HPV in cervical specimens collected by a physician using an endocervical brush/spatula or cervical broom and placed in the ThinPrep Pap Test PreservCyt collection containers. The performance characteristics of this test have been verified by the [facility] laboratory. Correlate with separately reported cytology results, as applicable. Interpretive data last revised 23 Testing performed by: [facility], [address] [place]., [address] Endocervical 12/09/2023 1:48 PM ENTRY LEVEL ACCOUNTANT 12/10/2023 10:52 AM ENTRY LEVEL ACCOUNTANT Narrative AIMEE CASTELLANO - 12/11/2023 3:48 AM ENTRY LEVEL ACCOUNTANT Clinical history and diagnosis->DX Z12.4 2012-BRYAN 2 Testing type->Screening Last menstrual period (date if known)->N/A Menstrual status->Post hysterectomy, total Previous negative PAP?->Yes Flakita Dias MD LAB BODY FLUIDS AND S TOOLS ORDERABLES Final Result AIMEE [id number] Department [place] [address] from Last 3 Months or Most Recently Relevant to Health Maintenance Insurance * Guarantor: Kourtney Caal Account Type Relation to Patient Date of Phone Billing Address Personal/Family Self 1985 [facility] [place] [address] [facility] Care Teams Taper Machine Relationship Specialty Start Date End Date Marcia Magana PA PCP - General Neurosurgery 12/30/23 Juarez Garcia, PT Physical Therapist Physical Therapy 03/18/24 Emily Parr PA [address] [place] [address] [address] [address] Physician Embedded Software Development Engineer Orthopedic Surgery 06/02/24
--- OUTSIDE RECORDS SUMMARY | 2025-06-11 19:32 | XMS_ITS | Encounter Summary ---
Author Organization [facility] Address [address] [place] [address] Phone Care Team Providers Care Melt Down Furnace Operator Name Role Phone Marcia Magana PAC Primary Care Pro vider Claire Carrillo MD Unavailable [phone] MD Primary Care Provider Marcia Magana PAC Primary Care Pro vider Reason for Visit * Reason Comments Medication Refill Encounter Details Date Type Department Care Team (Late st Contact Info) Description 10/23/2021 Refill [facility] [address] [place] [address] Marcia Magana, PAC [address] [place] [address] Medication Refill Social History Tobacco Use Types [...] 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 Requested Prescriptions Pending Prescriptions Disp Refills levothyroxine (SYNTHROID) 137 MCG Tablet [Pharmacy Med Name: LEVOTHYROXINE 0.137MG (137MCG) TAB] 90Tablet 3 Sig: TAKE 1 TABLET BY MOUTH DAILY Thyroid Hormones Protocol Failed - 10/23/2021 7:23 AM Failed - Normal TSH in past 12 months TSH Date Value Ref Range Status 07/30/2020 1.300 0.270 - 4.200 mIU/L Final Passed - Visit with relevant provider in past 12 months or upcoming 90 days Recent Visits Date Type Provider Dept 12/21/20 Telemedicine Marcia Magana, [facility] Showing recent visits within past 365 days and meeting all other requirements Future Appointments No visits were found meeting these conditions. Showing future appointments within next 90 days and meeting all other requirements ERY BUYER documented in this encounter Plan of Treatment Upcoming Encounters Date Type Department Care Team (Late st Contact Info) Description 06/22/2025 11:15 AM CDT Office Visit [facility] - Endocrinology - [place] [address] [place] [phone] Rigoberto Nunes MD [address] [place] [address] documented as of this encounter Goals Goal Patient Goal Type Associated Problems Recent Progress Patient-Stated? Author Behavioral Health Behavioral Health Improving( 11:25 AM GROCERY BUYER) Yes Katherine Mathews LCPC Note: I would like to feel better about myself and have more confidence. Goal Reviewed with: patient Readiness to change: Thinking about making a change Department associated with goal: [facility] Steps to achieve goal: [...] Behavioral Health Behavioral Health Improving( 11:25 AM GROCERY BUYER) Yes Katherine Mathews LCPC Note: Pt reported a desire to learn how to take care of myself as well as other people, to make her needs a priority but balanced with continuing to care for others in her roles as parent, spouse and employee. Goal Reviewed with: patient Readiness to change: Thinking about making a change Department associated with goal: [facility] Steps to achieve goal: [...] documented as of this encounter Care Teams Melt Down Furnace Operator Relationship Specialty Start Date End Date Marcia Magana PAC PCP - General Physician Table Assembler Metal 01/30/17 12/01/[address] MD PCP - General Family Medicine 06/12/22 11/16/22 Marcia Magana PAC PCP - General Physician Table Assembler Metal 11/17/22 Claire Carrillo MD Consulting Physician Obstetrics & Gynecology 09/21/17 documented as of this encounter
[2025-06-11 21:33] VITALS: BP 139/85; PULSE 112; RESP 20; TEMP 36.2; O2SAT 98
[2025-06-11 22:59] VITALS: BP 115/68; PULSE 92; RESP 20; O2SAT 99
--- OUTSIDE RECORDS SUMMARY | 2025-06-11 23:23 | XMS_ITS | Clinical Summary ---
Author Organization [facility] Address [address] [place] [address] Phone Care Team Providers Care Trailhead Construction Worker Name Role Phone Claire Carrillo MD Unavailable [phone] Marcia Magana PAC Primary Care Pro vider Allergies Active Allergy Reactions Criticality Noted Date Comments Wound Dressing Adhesive Hives Medium 05/25/2024 Rash, blisters with wound glue Medications estradiol (ESTRACE) 2 MG Tablet TK 1 T PO D 06/20/2020 Active Insulin Pen Needle (Easy Touch Pen [place]) 32G X 5 MM Misc USE FOUR TIMES DAILY 400 Each 3 08/21/2022 Active Continuous Blood Gluc Brand Communications Manager (Dexcom G7 Brand Communications Manager) Device Check blood sugar before each meal [...] Care Team Description 04/11/2025 Refill [facility] - Endocrinology - [place] [address] [place] [address] Rigoberto Nunes MD Medication Refill 03/27/2025 Refill [facility] - Endocrinology - [place] [address] [place] [address] Rigoberto Nunes MD Medication Refill 03/23/2025 Results Follow-Up [facility] [address] [place] [phone] Rigoberto Nunes MD CMP (COMPREHENSIVE METABOLIC PANEL), THYROID STIMULATING HORMONE (TSH), THYROXINE (T4) FREE, Additional followed-up results: 2 03/22/2025 11:15 AM CDT Office Visit [facility] [address] [place] [phone] Rigoberto Nunes MD Type 1 diabetes mellitus [...] oz pur e alcohol) social events/ gathering [facility] Utilities Answer Date Recorded In the [...] How often do you attend chur or jain services? Never 05/23/2024 Do you belong to any clubs o r organizations such as sikh groups, unions, fraternal or athletic groups, or [...] Total Score - Questions 1-9 9 02/2022 [facility] - Occupational [...] any time in the past 12 m [facility], were you homeless or living in a detention (including now)? 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 Goal Reviewed with: patient Readiness to change: Thinking about making a change Department associated with goal: [facility] Steps to achieve [...] Behavioral Health Behavioral Health Improving( 11:25 AM ERGONOMIST) Katherine Barnes LCPC Note: Pt reported a desire to learn how to take care of myself as well as other people, to make her needs a priority but balanced with continuing to care for others in her roles as parent, spouse and employee. Goal Reviewed with: patient Readiness to change: Thinking about making a change Department associated with goal: [facility] Steps to achieve [...] self-care). Anxiety Behavioral Health Improving( 11:25 AM ERGONOMIST) Kirstin Najera LCSW Note: Goal/Objective: Improve coping with anxious thoughts. Anticipated Time Frame for Goal Completion: 6 months Goal Reviewed with: patient Readiness to change: Ready to change Department associated with goal: [facility] Steps to achieve [...] <0.50 mg/dL 03/22/2025 1:16 PM CDT [facility] Comment:No reference range h as been established. Consider Clinical Correlation. CREATININE URINE 64.8 mg/dL 03/22/20 1:16 PM CDT [facility] Comment:No reference range h as been established. Consider Clinical Correlation. ALB/CREAT RATIO 1:16 PM CDT [facility] Comment:Unable to calculate due to urine microalbumin concentration less than 0.5 mg/dL Urine Non-Phlebotomy Collection / Unknown 03/22/2025 11:46 AM CDT 03/22/2025 12:43 PM CDT us Rigoberto Nunes MD URINE ORDERABLES Final Result Performing Organization Address [facility]/ZIP Co de Phone Number [facility] [address] [place] [address] * THYROXINE (T4) FREE (03/22/2025 11:46 AM CDT) T4 FREE 1.1 0.7 - 1.9 ng/dL 03/22/2025 1:29 PM CDT [facility] Blood Venipuncture / Unknown 03/22/2025 11:46 AM CDT 03/22/2025 12:44 PM CDT us Rigoberto Nunes MD CHEMISTRY ORDERABLES Final Resul t Performing Organization Address [facility]/ZIP Co de Phone Number [facility] [address] [place] [address] * THYROID STIMULATING HORMONE (TSH) (03/22/2025 11:46 AM CDT) TSH 1.411 0.300 - 5.000 mIU/L 03/22/2025 1:29 PM CDT [facility] Blood Venipuncture / Unknown 03/22/2025 11:46 AM CDT 03/22/2025 12:44 PM CDT us Rigoberto Nunes MD CHEMISTRY ORDERABLES Final Resul t [facility] [address] [place] [address] * LOW DENSITY LIPID CHOLESTEROL MEASURED (03/22/2025 11:46 AM CDT) LDL, MEASURED 78 <130 mg/dL 03/22/2025 9:28 PM CDT [facility] Blood Venipuncture / Unknown 03/22/2025 11:46 AM CDT 03/22/2025 12:44 PM CDT us Rigoberto Nunes MD CHEMISTRY ORDERABLES Final Resul t [facility] [address] [place] [address], * (ABNORMAL) CMP (COMPREHENSIVE METABOLIC PANEL) (03/22/2025 11:46 AM CDT) Pathologist [facility] SODIUM 142 136 - 145 mmol/L 03/22/2025 1:15 PM CDT [facility] POTASSIUM 4.4 3.5 - 5.1 mmol/L 03/22/2025 1:15 PM CDT [facility] CHLORIDE 108(H) 98 - 107 mmol/L 03/22/2025 1:15 PM CDT [facility] CO2, VENOUS 26 22 - 30 mmol/L 03/22/2025 1:15 PM CDT [facility] ANION GAP 12.4 <18.0 mmol/L 03/22/2025 1:15 PM CDT [facility] GLUCOSE 128(H) 70 - 99 mg/dL 03/22/2025 1:15 PM CDT [facility] BUN 6 5 - 18 mg/dL 03/22/2025 1:15 PM CDT [facility] CREATININE, BLOOD 0.73 0.60 - 1.00 mg/dL 03/22/2025 1:15 PM CDT [facility] BUN/CREATININE RATIO 8(L) 12 - 20 ratio 03/22/2025 1:15 PM CDT [facility] TOTAL PROTEIN 7.2 6.0 - 8.0 g/dL 03/22/2025 1:15 PM CDT [facility] ALBUMIN 4.2 3.5 - 5.0 g/dL 03/22/2025 1:15 PM [facility] A/G RATIO 1.4 1.0 - 2.2 03/22/2025 1:15 PM CDT [facility] CALCIUM 8.8 8.7 - 10.5 mg/dL 03/22/2025 1:15 PM T [facility] T BILI 0.3 0.2 - 1.2 mg/dL 03/22/2025 1:15 PM [facility] SGOT (AST) 26 <43 U/L 03/22/2025 1:15 PM T [facility] SGPT (ALT) 25 <56 U/L 03/22/2025 1:15 PM [facility] ALKALINE PHOSPHATASE 81 40 - 150 U/L 03/22/2025 1:15 PM [facility] IS THE PATIENT REQUIRED TO BE FASTING? No 03/22/2025 1:15 PM [facility] GFR, ESTIMATED >60 >=60 03/22/2025 1:15 PM T [facility] Comment: Creatinine Clearance is the preferred criteria for selecting drug dose adjustments in renally impaired patients. The GFR is provided as additional pertinent clinical information. GFR is reported in mL/min/1.73 sq m. Calculation based on the Chronic Kidney Disease Epidemiology Collaboration (CKD- EPI) equation refit without adjustment for race. GFR, EST. >60 >=60 025 1:15 PM T [facility] GFR, EST. NONAFRICAN >60 >=60 03/22/2025 1:15 PM [facility] Blood Venipuncture / Unknown 03/22/2025 11:46 AM CDT 03/22/2025 12:44 PM CDT us Rigoberto Nunes MD CHEMISTRY ORDERABLES Final Resul t [facility] [address] [place] [address] * (ABNORMAL) POCT GLYCOSYLATED HEMOGLOBIN (03/22/2025 11:06 AM CDT) HGB-A1C 6.3(A) 4 - 6 % Blood 03/22/2025 11:0 6 AM CDT us Rigoberto Nunes MD POINT OF CARE TESTING (MANUAL) F inal Result * HM DILATED EYE EXAM (03/18/2024 12:00 AM CDT) 03/18/2024 us Provider Scan PROCEDURE/MINOR SURGICAL ORDERAB LES Final Result SCAN from Last 3 Months or Most Recently Relevant to Health [place] [address] [place] [place] [address] Care Teams Trailhead Construction Worker Relationship Specialty Start Date End Date Marcia Magana, CIERRA PCP - General Physician Senior Network Engineer 11/17/22 Claier Carrillo MD Consulting Physician Obstetrics & Gynecology 09/21/17
--- OUTSIDE RECORDS SUMMARY | 2025-06-11 23:23 | XMS_ITS | Encounter Summary ---
Author Organization [facility] Address [address] 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 Insulin Pen Needle (Easy Touch Pen [place]) 32G X 5 MM Misc [Pharmacy Med Name: EASY TOUCH PEN NEEDLES [id number]] 400 Each 3 Sig: USE FOUR TIMES DAILY Next appt: Message sent to schedule follow up. documented in this encounter Plan of Treatment Upcoming Encounters Date Type Department Care Team (Late st Contact Info) Description 06/22/2025 11:15 AM CDT Office Visit [facility] - Endocrinology - [place] [address] [place] [address] Rigoberto Nunes MD [address] [address] documented as of this encounter Goals Goal Patient Goal Type Associated Problems Recent Progress Patient-Stated? Author Behavioral Health Behavioral Health Improving( 11:25 AM TURNER SPLITTER MACHINE OPERATOR) Yes Katherine Mathews ACTUARIAL TECHNICIAN Note: I would like to feel better about myself and have more confidence. Goal Reviewed with: patient Readiness to change: Thinking about making a change Department associated with goal: [facility] BE[facility]AVIOR[facility] HE[facility] SERVICES Steps to achieve [...] Behavioral Health Behavioral Health Improving( 11:25 AM TURNER SPLITTER MACHINE OPERATOR) Yes Katherine Mathews, [facility] Note: Pt reported a desire to learn how to take care of myself as well as other people, to make her needs a priority but balanced with continuing to care for others in her roles as parent, spouse and employee. Goal Reviewed with: patient Readiness to change: Thinking about making a change Department associated with goal: [facility] SERVICES Steps to achieve [...] documented as of this encounter Care Teams Senior Advocate Relationship Specialty Start Date End Date Susie Way MD PCP - General Family Medicine 06/12/22 11/16/22 Marcia Magana PAC PCP - General Physician Quality Assurance Manager 11/17/22 Claire Carrillo MD Consulting Physician Obstetrics & Gynecology 09/21/17 documented as of this encounter
--- OUTSIDE RECORDS SUMMARY | 2025-06-11 23:23 | XMS_ITS | Clinical Summary ---
Author Organization [facility] Address [address] [place] [address] Care Team Providers Care Account Manager Name Role Phone Unavailable Primary Care Provider Unavailabl e Medications insulin glulisine (APIDRA) 100 UNIT/ML injectionIndicati ons:Type 1 diabetes mellitus without complication ([facility]/HCC) Use via insulin pump 30 units a day. No more refills. Needs to make a f/up appointment. Can be seen in [place] office 30 mL 9 Active atorvastatin 20 [...] on file Legal Sex Female 9:24 PM GLASS MELT OPERATOR Gender Identity Not on file Sexual Orientation [...]
--- OUTSIDE RECORDS SUMMARY | 2025-06-11 23:23 | XMS_ITS | Encounter Summary ---
Author Organization [facility] Address [address] [facility] [place] [address] Phone Care Team Providers Care Tire Molder Name Role Phone Marcia Magana PAC Primary Care Pro vider Claire Carrillo MD Unavailable [phone] MD Primary Care Provider Marcia Magana PAC Primary Care Pro vider Reason for Visit * Reason Comments Medication Refill Encounter Details Date Type Department Care Team (Late st Contact Info) Description 12/19/2020 Refill [facility] - [facility] - [place] [address] [place] [address] Marcia Magana, PAC [address] [place] [address] Medication Refill Social History Tobacco Use Types [...] 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 [employer] documented in this encounter Plan of Treatment Upcoming Encounters Date Type Department Care Team (Late st Contact Info) Description 06/22/2025 11:15 AM CDT Office Visit [facility] - Endocrinology - [place] [address] [place] [address] Rigoberto Nunes MD [address] [address] documented as of this encounter Goals Goal Patient Goal Type Associated Problems Recent Progress Patient-Stated? Author Behavioral Health Behavioral Health Improving( 11:25 AM VP MARKETING SERVICES AND SKIN) Yes Katherine Mathews LCPC Note: I would [...] Behavioral Health Behavioral Health Improving( 11:25 AM VP MARKETING SERVICES AND SKIN) Yes Katherine Mathews LCPC Note: Pt reported [...] documented as of this encounter Care Teams Tire Molder Relationship Specialty Start Date End Date Marcia Magana PAC PCP - General Physician Decal Decorator 01/30/17 12/01/[address] MD PCP - General Family Medicine 06/12/22 11/16/22 Marcia Magana PAC PCP - General Physician Decal Decorator 11/17/22 Claire Carrillo MD Consulting Physician Obstetrics & Gynecology 09/21/17 documented as of this encounter
--- OUTSIDE RECORDS SUMMARY | 2025-06-11 23:23 | XMS_ITS | Encounter Summary ---
Author Organization [facility] Address [address] [facility] [place] [address] Phone Care Team Providers Care Residential Door Unit Installer Name Role Phone Marcia Magana PAC Primary Care Pro vider Claire Carrillo MD Unavailable [phone] MD Primary Care Provider Marcia Magana PAC Primary Care Pro vider Reason for Visit * Reason Comments Medication Refill Encounter Details Date Type Department Care Team (Late st Contact Info) Description 10/23/2021 Refill [facility] - [facility] [address] [place] [address] Marcia Magana, PAC [address] [place] [address] Medication Refill Social History Tobacco Use Types [...] 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 Showing future appointments within next 90 days and meeting all other requirements NT NANNY documented in this encounter Plan of Treatment Upcoming Encounters Date Type Department Care Team (Late st Contact Info) Description 06/22/2025 11:15 AM CDT Office Visit [facility] - [place] [address] [place] [phone] Rigoberto Nunes MD #[address] [place] [address] documented as of this encounter Goals Goal Patient Goal Type Associated Problems Recent Progress Patient-Stated? Author Behavioral Health Behavioral Health Improving( 11:25 AM INFANT NANNY) Yes Katherine Mathews LCPC Note: I would like to feel better about myself and have more confidence. Goal Reviewed with: patient Readiness to change: Thinking about making a change Department associated with goal: [facility] BE[facility]AVIORAL HEALTH SERVICES Steps to achieve [...] Behavioral Health Behavioral Health Improving( 11:25 AM INFANT NANNY) Yes Katherine Mathews LCPC Note: Pt reported a desire to learn how to take care of myself as well as other people, to make her needs a priority but balanced with continuing to care for others in her roles as parent, spouse and employee. Goal Reviewed with: patient Readiness to change: Thinking about making a change Department associated with goal: [facility] Steps to achieve [...] documented as of this encounter Care Teams Residential Door Unit Installer Relationship Specialty Start Date End Date Marcia Magana PAC PCP - General Physician Floatlight Loading Supervisor 01/30/17 12/01/[address] MD PCP - General Family Medicine 06/12/22 11/16/22 Marcia Magana PAC PCP - General Physician Floatlight Loading Supervisor 11/17/22 Claire Carrillo MD Consulting Physician Obstetrics & Gynecology 09/21/17 documented as of this encounter
--- OUTSIDE RECORDS SUMMARY | 2025-06-11 23:23 | XMS_ITS | Encounter Summary ---
Author Organization [facility] Address [address] 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 Author Behavioral [facility] Health Improving( 11:25 AM UI DEVELOPER WITH ANGULAR JS) Yes Katherine Mathews LCPC Note: I would like to feel better about myself and have more confidence. Goal Reviewed with: patient Readiness to change: Thinking about making a change Department associated with goal: [facility] BEHAVIORAL HEALTH SERVICES Steps to achieve goal: [...] Behavioral Health Behavioral Health Improving( 11:25 AM UI DEVELOPER WITH ANGULAR JS) Yes Katherine Mathews LCPC Note: Pt reported a desire to learn how to take care of myself as well as other people, to make her needs a priority but balanced with continuing to care for others in her roles as parent, spouse and employee. Goal Reviewed with: patient Readiness to change: Thinking about making a change Department associated with goal: [facility] BE[facility]AVIOR[facility] HE[facility] Steps to achieve goal: [...] self-care). Anxiety Behavioral Health Improving( 11:25 AM UI DEVELOPER WITH ANGULAR JS) Kirstin Najera LCSW Note: Goal/Objective: Improve coping with anxious thoughts. Anticipated Time Frame for Goal Completion: 6 months Goal Reviewed with: patient Readiness to change: Ready to change Department associated with goal: [facility] BE[facility]IOR[facility] HE[facility] SERVICES Steps to achieve goal: [...] Total Score: 9 09/15/20 22 9:00 AM UI DEVELOPER WITH ANGULAR JS documented as of this encounter Care Teams Secretary Book Keeper Relationship Specialty Start Date End Date Marcia Magana PAC PCP - General Physician Plating Machine Operator 11/17/22 Claire Carrillo MD Consulting Physician Obstetrics & Gynecology 09/21/17 documented as of this encounter
--- OUTSIDE RECORDS SUMMARY | 2025-06-11 23:23 | XMS_ITS | Clinical Summary ---
Author Organization [facility] [address] Address [address] [place] [address] Phone Care Team Providers Care Sales Representative Printing Name Role Phone Marcia Magana Primary Care Prov ider Juarez Garcia PT Unavailable Unavailable Emily Parr Unavailable [phone] Allergies Active Allergy Reactions Criticality Noted Date Comments Adhesive Blisters High 06/15/2024 Medipore surgical tape, Dermabond Tissue Adhesive Hives Medium 05/25/2024 Rash, blisters with wound glue Medications blood glucose diagnostic (ONETOUCH ULTRA TEST) strip use to check glucose 4/day 120 each 6 4 Active Dexcom G7 Sensor device CHANGE SENSOR EVERY 10 DAYS 4 Active Dexcom G7 Rural Carrier Associate misc CHECK BLOOD SUGAR BEFORE EACH MEAL [...] Team Description 05/11/2025 7:30 AM CDT Therapy [address] [place] [address] Juarez Garcia PT Adhesive capsulitis of left shoulder (Primary Dx) 05/11/2025 Plan of Care Documentation [address] [address] 04/17/2025 9:00 AM CDT Office Visit [facility] [address] [place] [phone] Emily Parr PA Adhesive capsulitis of left shoulder (Primary Dx); Acute pain of left shoulder 04/17/2025 7:44 AM CDT - 04/17/2025 11:59 PM CDT Hospital Encounter [facility] [address] [place] [address] [address] [place] [address] Discharge Disposition: Discharge to home or self care 04/05/2025 Telephone [facility] [address] [place] [address] [address], [place] [address] Emily Parr PA from Last 3 Months [...] Relation Name Status Comments Brother Jean Marie Patient Coordinator Front Desk Father Maria Isabel Patient Coordinator Front Desk Mother Nancy Patient Coordinator Front Desk Paternal Grandfather Jean Marie Martinez Sister Social [...] on file Legal Sex Female 2:20 PM PUMP OPERATOR [employer] Gender Identity Not on file Sexual Orientation [...] CDT Respiratory Rate 18 11/07/2024 11:35 AM PUMP OPERATOR [employer] Oxygen Saturation 98% 06/03/2024 12:00 AM CDT [...] AM CDT Acute pain of left shoulder [place] ARTHROCENTESIS ASPIR&/INJ MAJOR JT/BURSA W/O US Routine 04/17/2025 9:00 AM CDT Acute pain of left shoulder Adhesive capsulitis of left shoulder HIGH RISK HPV DNA DETECTION WITH GENOTYPING Routine 12/09/2023 1:48 PM PUMP OPERATOR [employer] Screening for malignant neoplasm of the cervix [...] with Genotyping (Molecular component) (12/09/2023 1:48 PM PUMP OPERATOR [employer]) HPV HR 16 Not Detected Not Detected AIMEE CASTELLANO Comment:Testing performed by : [facility], [address] [place]., [address] HPV HR 18 Not Detected Not Detected AIMEE CASTELLANO Comment:Testing performed by : [facility], [address] [place]., [address] HPV HR Non 16/18 Not Detected Not [...] this test have been verified by the [facility] Molecular Infectious Disease laboratory. Correlate with separately reported cytology results, as applicable. Interpretive data last revised 23 Testing performed by: [facility], [address] [place]., [address] Endocervical 12/09/2023 1:48 PM PUMP OPERATOR [employer] 12/10/2023 10:52 AM PUMP OPERATOR [employer] Narrative AIMEE CASTELLANO - 12/11/2023 3:48 AM PUMP OPERATOR [employer] Clinical history and diagnosis->DX Z12.4 2012-BRYAN 2 Testing type->Screening Last menstrual period (date if known)->N/A Menstrual status->Post hysterectomy, total Previous negative PAP?->Yes Flakita Dias MD LAB BODY FLUIDS AND S TOOLS ORDERABLES Final Result AIMEE [address] [place] [address] from Last 3 Months or Most Recently Relevant to Health Maintenance Insurance [facility] Care Teams Sales Representative Printing Relationship Specialty Start Date End Date Marcia Magana PA PCP - General Neurosurgery 12/30/23 Juarez Garcia, PT Physical Therapist Physical Therapy 03/18/24 Emily Parr PA [address] [place] [address] [address], [place] [address] Physician Clinical Sciences Professor Orthopedic Surgery 06/02/24
--- OUTSIDE RECORDS SUMMARY | 2025-06-11 23:23 | XMS_ITS | Encounter Summary ---
Author Organization [facility] Address [address] [place] [address] Phone Care Team Providers Care Orthopedic Designer Name Role Phone Marcia Magana PAC Primary Care Pro vider Claire Carrillo MD Unavailable [phone] MD Primary Care Provider Marcia Magana PAC Primary Care Pro vider Reason for Visit * Reason Comments Medication Refill Encounter Details Date Type Department Care Team (Late st Contact Info) Description 07/16/2020 Refill [facility] - [facility] [place] [address] [place] [address] Marcia Magana, PAC [address] [place] [address] Medication Refill Social History Tobacco Use Types [...] 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 on file Not [...] ago Generalized anxiety disorder [facility] - Family Medicine - Marcia Montoya PAC 3 months ago Anxiety [facility] Family [facility] - Marcia Montoya PAC 6 months ago Cough [facility] - [place]leen Lugo PAC 7 months ago Cough [facility] Family [facility] [place] APN, ARCHITECTURAL REPRESENTATIVE 11 months ago Upper respiratory tract infection, unspecified type [facility] Family [facility] - Marcia Montoya PAC Upcoming Appointments Future Appointments In 1 week Marcia Magana PAC [facility] Medical [facility] - Family Medicine - [place] In 1 week Rigoberto Nunes MD [facility] Medical Group - Endocrinology - [place] CAR RENTAL AGENT - Recent and Past Visits Recent Visits Date Type Provider Dept 04/20/20 Office Visit Marcia Magana PAC [facility] [place] 03/21/20 Office Visit Marcia Magana, PAC [facility] [place] 01/03/20 Office Visit Jayleen Bruno, PAC [facility] [place] 11/28/19 Office Visit Carie Rivers APN, ARCHITECTURAL REPRESENTATIVE [facility] [place] 07/27/19 Office Visit Marcia Magana, PAC [facility] [place] Showing recent visits within past 460 days with a meds authorizing provider and meeting all other requirements Future Appointments Date Type Provider Dept 07/30/20 Appointment Marcia Magana, PAC [facility] [place] Showing future appointments within next 90 days with a meds authorizing provider and meeting all other requirements documented in this encounter Plan of Treatment Upcoming Encounters Date Type Department Care Team (Late st Contact Info) Description 06/22/2025 11:15 AM CDT Office Visit [facility] Medical [facility] - Endocrinology - [place] [address] [place] [address] Rigoberto Nunes MD [address] [address] documented as of this encounter Goals Goal Patient Goal Type Associated Problems Recent Progress Patient-Stated? Author Behavioral Health Behavioral Health Improving( 11:25 AM PHOTOENGRAVING PHOTOGRAPHER) Yes Katherine Mathews, [facility] Note: I would like to feel better about myself and have more confidence. Goal Reviewed with: patient Readiness to change: Thinking about making a change Department associated with goal: [facility] Steps to achieve [...] Behavioral Health Behavioral Health Improving( 11:25 AM PHOTOENGRAVING PHOTOGRAPHER) Yes Katherine Mathews, [facility] Note: Pt reported a desire to learn how to take care of myself as well as other people, to make her needs a priority but balanced with continuing to care for others in her roles as parent, spouse and employee. Goal Reviewed with: patient Readiness to change: Thinking about making a change Department associated with goal: [facility] Steps to achieve [...] documented as of this encounter Care Teams Orthopedic Designer Relationship Specialty Start Date End Date Marcia Magana PAC PCP - General Physician Gage Maker 01/30/17 12/01/[address] MD PCP - General Family Medicine 06/12/22 11/16/22 Marcia Magana PAC PCP - General Physician Gage Maker 11/17/22 Claire Carrillo MD Consulting Physician Obstetrics & Gynecology 09/21/17 documented as of this encounter
--- OUTSIDE RECORDS SUMMARY | 2025-06-11 23:23 | XMS_ITS | Encounter Summary ---
Author Organization [facility] Address [address] 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 Author Behavioral Health Behavioral Health Improving( 11:25 AM DRAINAGE INSPECTOR) Yes Katherine Mathews LCPC Note: I would like to feel better about myself and have more confidence. Goal Reviewed with: patient Readiness to change: Thinking about making a change Department associated with goal: [facility] Steps to achieve goal: [...] Behavioral Health Behavioral Health Improving( 11:25 AM DRAINAGE INSPECTOR) Yes Katherine Mathews LCPC Note: Pt reported a desire to learn how to take care of myself as well as other people, to make her needs a priority but balanced with continuing to care for others in her roles as parent, spouse and employee. Goal Reviewed with: patient Readiness to change: Thinking about making a change Department associated with goal: [facility] Steps to achieve goal: [...] self-care). Anxiety Behavioral Health Improving( 11:25 AM DRAINAGE INSPECTOR) Kirstin Najera LCSW Note: Goal/Objective: Improve coping with anxious thoughts. Anticipated Time Frame for Goal Completion: 6 months Goal Reviewed with: patient Readiness to change: Ready to change Department associated with goal: [facility] Steps to achieve goal: [...] Total Score: 9 09/15/20 22 9:00 AM DRAINAGE INSPECTOR documented as of this encounter Care Teams Environmental Field Team Member Relationship Specialty Start Date End Date Marcia Magana PAC PCP - General Physician Ball Worker 11/17/22 Claire Carrillo MD Consulting Physician Obstetrics & Gynecology 09/21/17 documented as of this encounter
[2025-06-11] MEDS: HYDROcodone/acetaminophen (*CRX) 5-325 MG TABLET 1 TAB PO (23:25)
[2025-06-11] MEDS: KETOROLAC (*BKC) 60 MG/2 ML VIAL IM (23:27)
--- NOTE | 2025-06-12 00:12 | ED_ITS ---
HPI - Extremity Injury (Lower) General Chief Complaint: Extremity Injury, Lower Stated Complaint: LEFT ANKLE PAIN Time Seen by Provider: 06/11/25 22:57 Source: patient Mode of arrival: ambulatory Limitations: no limitations History of Present Illness HPI Narrative: Patient is a 40-year-old female who presents the ED with report of left ankle pain. Patient reports she was playing water kickball tonight and slipped on the wet tarp and her L ankle rolled underneath her. She states she heard a crack/pop in her left ankle. She was unable to bear weight in lower her left foot afterwards. Denies any other injuries. Denies numbness. Related Data Home Medications ?Medication ?Instructions ?Recorded ?Confirmed ?Last Taken ?Type estradiol 2 mg tablet 2 mg PO DAILY 10/17/1906/11 Unknown History insulin glulisine U-100 100 1 sliding scale dose subcu t 10/17/19 12/24/20 Unknown History unit/mL subcutaneous solution USEASDIRECTD (Apidra U-100 Insulin) levothyroxine 125 mcg tablet 125 mcg PO DAILY 10/17/19 12/24/20 Unknown History amoxicillin 875 mg-potassium 1 tablet PO BID 12/24/20 12/24/20 Unknown History clavulanate 125 mg tablet escitalopram oxalate 10 mg tablet 10 mg PO DAILY 12/2412/24/20 Unknown History insulin glargine 100 unit/mL (3 15 unit subcut QPM 12/24/20 Unknown H istory mL) subcutaneous pen (Lantus Solostar U-100 Insulin) atorvastatin 20 mg tablet mg 06/11/25 Unknown History blood sugar diagnostic (OneTouch 06/11/25 06/11/25 Un known History Verio test strips) blood-glucose sensor (Dexcom G7 06/11/25 06/11/25 Unk nown History Sensor device) insulin lispro 100 unit/mL 06/11/25 Unknown History subcutaneous solution lancets 33 gauge (OneTouch Delica 06/11/25 06/11/25 U nknown History Plus Lancet) levothyroxine 112 mcg tablet mcg 06/11/25 Unknown His tory Allergies Allergy/AdvReac Type Severity Reaction Status Date / Time bacitracin Allergy Intermediate Blister Verified 06/11/25 23:36 surgical glue Allergy Intermediate blisters Uncoded 06/11/25 23:36 Review of Systems Review of Systems: All systems reviewed & are unremarkable except as noted in HPI. All systems reviewed & are unremarkable except as noted in HPI and below PMFSH Past Medical History Medical History Diabetes Hypothyroidism Surgical History Surgical History Previous section H/O bilateral oophorectomy H/O: hysterectomy Social History Social History Tobacco type: e-cigarettes/vaping Living arrangements: with family Exam Narrative: GENERAL: Well appearing, well-nourished, non-toxic, in no acute distress. HEAD: Normocephalic, atraumatic. RESPIRATORY: Airway patent, respirations nonlabored. CARDIOVASCULAR: Regular rate and rhythm. Pedal pulses strong and intact MUSCULOSKELETAL: No gross deformities. Limited range of motion of left ankle due to pain. Diffuse swelling throughout left ankle. Tenderness to palpation throughout medial and lateral malleoli and along posterior ankle. Sensation intact. Capillary refill intact. Able to wiggle toes. SKIN: Warm, dry, normal color. NEURO: A&O X3. Speech clear. Cranial nerves II-XII grossly intact. No ataxic movements. PSYCHIATRIC: Appropriate mood and affect. Normal interaction. Course Vital Signs Vital signs: Vital Signs Temperature 97.5 F L 06/11/25 19:31 Pulse Rate 99 06/11/25 19:31 Respiratory Rate 17 06/11/25 19:31 Blood Pressure 141/87 H 06/11/25 19:31 Pulse Oximetry 100 06/11/25 19:31 Temperature 97.2 F L 06/11/25 21:33 Pulse Rate 92 06/11/25 22:59 Respiratory Rate 20 06/11/25 22:59 Blood Pressure 115/68 06/11/25 22:59 Pulse Oximetry 99 06/11/25 22:59 MDM - Extremity Injury (Lower) MDM Narrative Medical decision making narrative: Patient?s injury is consistent with musculoskeletal etiology. No signs of neurologic or vascular compromise on physical examination. Compartments are soft without signs of compartment syndrome. XR of left ankle show a trimalleolar fracture. No dislocation. Consistent with exam and injury. Discussed imaging findings with patient. Placed in short leg posterior splint with stirrup. Patient sees Orthopedics with Dr. Dylan Baumann. Attempted to contact their office several times through the exchange, however did not receive a call back. Patient advised to contact ortho office first thing Thursday for f/u. Patient given pain control. Given crutches. Discussed rice therapy, strict nonweightbearing, strict return precautions. Otherwise stable for discharge home and further outpatient management and treatment. Given strict return precautions. She is in agreement with plan. Feels comfortable going home at this time. Discharged in stable condition. Medical Records Attestation: I reviewed the patient's medical records. Imaging Data Attestation: I personally reviewed and interpreted this imaging study as follows: Radiologist's impression: ITS Impressions Ankle X-Ray 06/11/25 20:56 IMPRESSION: 1. Mild displacement of a trimalleolar fracture of the left ankle. Discharge Plan Discharge Clinical Impression: Closed displaced trimalleolar fracture of left ankle Patient Disposition: Home Condition: Stable Instructions: Antibiotic Form, Ankle Fracture (ED), Splint Care (ED), P. R.I.C.E. Treatment (ED) Additional Instructions: You need to follow-up with orthopedics for further evaluation. Call office to make appointment. Wear splint until seen by orthopedics. Avoid any weight- bearing on left leg. Utilize crutches for assistance with walking. Keep leg elevated as much as possible, frequent icing to ankle. Recommend Tylenol/ibuprofen around the clock as needed for pain. Oxycodone as needed for more severe pain. Return to the ED if you experience worsening or severe pain or swelling, numbness, recurrent injury, or any other symptoms of concern. Patient Language: Bahraini Prescriptions: New oxycodone 5 mg tablet 5 mg PO Q6H PRN (Reason: pain) Qty: 20 0RF No Action levothyroxine 125 mcg Tablet 125 mcg PO DAILY estradiol 2 mg Tablet 2 mg PO DAILY Apidra U-100 Insulin 100 unit/mL Solution 1 sliding scale dose SUBCUT USEASDIRECTD Rx Instructions: PER INSULIN PUMP Lidocaine Viscous 2 % solution 1 applic mucous membrane TID PRN (Reason: pain) Qty: 15 0RF tramadol 50 mg tablet 50 mg PO Q6H PRN (Reason: pain) Qty: 10 0RF Lantus Solostar U-100 Insulin 100 unit/mL (3 mL) Insulin Pen 15 unit SUBCUT QPM amoxicillin-pot clavulanate 875-125 mg tablet 1 tablet PO BID escitalopram oxalate 10 mg Tablet 10 mg PO DAILY atorvastatin 20 mg tablet (DME) OneTouch Verio test strips Strip MISCELLANEOUS insulin lispro 100 unit/mL solution levothyroxine 112 mcg tablet (DME) Dexcom G7 Sensor Device MISCELLANEOUS (DME) lancets [OneTouch Delica Plus Lancet] 33 gauge [facility] MISCELLANEOUS Follow-up/Referrals: [place],JULIA Kennedy [Primary Care Provider, Unknown] Time of Disposition: 00:49
== END 2025-06-12 01:37 | disposition home or self-care (01) ==
PROVIDERS: Emergency Provider Physician Assistant; PCP Physician Assistant
DX: S82.852A Displaced trimalleolar fracture of left lower leg, initial encounter for closed fracture (principal); E11.9 Type 2 diabetes mellitus without complications; E03.9 Hypothyroidism, unspecified; F17.290 Nicotine dependence, other tobacco product, uncomplicated; Z90.710 Acquired absence of both cervix and uterus; Z90.722 Acquired absence of ovaries, bilateral; Z79.890 Hormone replacement therapy; Z79.899 Other long term (current) drug therapy; Z79.4 Long term (current) use of insulin; W01.0XXA Fall on same level from slipping, tripping and stumbling without subsequent striking against object, initial encounter; Y93.6A Activity, physical games generally associated with school recess, summer camp and children
CPT/HCPCS: 29515; 73610; 96372; 99284; A9270; J1885